=== PATIENT | female | born 1965 | race Two or more races ===

== ENCOUNTER → 2021-01-11 06:21 | Outpatient (CLI) | payer OTHER | END | disposition home or self-care (01) | LOC: LAB 06:21 | PROVIDERS: ATTEND Specialist | DX: E03.8 Other specified hypothyroidism (principal); D68.51 Activated protein C resistance; E72.11 Homocystinuria; D68.52 Prothrombin gene mutation; E72.12 Methylenetetrahydrofolate reductase deficiency; E11.65 Type 2 diabetes mellitus with hyperglycemia ==

== ENCOUNTER 2022-02-11 07:30 | Emergency (ER) | payer OTHER ==
[~2022-02-11] VITALS: Ht 139.7 cm; Wt 54.4 kg
[2022-02-11] MEDS ORDERED: ZITHROMAX500 MG PO (10:53)
[2022-02-11] MEDS ORDERED: FLONASE ALLERG9.9 ML NASAL (10:53)
== END 2022-02-11 11:15 | disposition home or self-care (01) ==
LOC: ER 07:30
DX: U07.1 COVID-19 (principal)

== ENCOUNTER 2023-09-03 05:31 | Emergency (ER) | payer OTHER ==
[~2023-09-03] VITALS: Ht 142.2 cm; Wt 56.7 kg
[~2023-09-03 05:31] MED LIST: FLONASE ALLERG9.9 ML NASAL; ZITHROMAX500 MG PO
[2023-09-03 09:08] LABS: HEMATOCRIT 36.9 % (36.0-45.00); HEMOGLOBIN 12.9 g/dL (12.0-15.00); MEAN CELL VOLUME 89.1 fL (80.00-100.00); MEAN CORPUSCULAR HEMOGLOBIN 31.2 pg (27.00-32.0); PLATELET COUNT 364 K/uL (150-450); RED BLOOD COUNT 4.15 M/uL (4.00-6.00)
[2023-09-03 09:32] LABS: INR 0.98; PROTHROMBIN TIME 10.3 SECONDS (9.0-11.5)
[2023-09-03 09:47] LABS: ALBUMIN 3.9 gm/dL (3.4-5.0); BILIRUBIN TOTAL 0.38 mg/dL (0.3-1.2); CALCIUM 9.8 mg/dL (8.5-10.1); CREATININE SERUM 0.62 mg/dL (0.55-1.02); GFR 98.52; GLOBULINA 4.9 G/DL (2.4-3.5); POTASSIUM 4.05 mEq/L (3.5-5.1); TOTAL PROTEIN 8.8 gm/dL (6.4-8.2)
[2023-09-03 09:50] LABS: C-REACTIVE PROTEIN 0.31 MG/DL (0.00-0.29)
[2023-09-03 10:13] LABS: D DIMER 1.26 MG/L; PARTIAL THROMBOPLASTIN TIME 28.7 SECONDS (22.0-34.0)
[2023-09-03] MEDS ORDERED: DAFLONEX-XL 11300 MG PO (14:37)
== END 2023-09-03 15:17 | disposition home or self-care (01) ==
LOC: ER
PROVIDERS: General Practice
DX: I73.9 Peripheral vascular disease, unspecified (principal); I87.2 Venous insufficiency (chronic) (peripheral)

== ENCOUNTER 2024-04-23 07:08 | Outpatient (CLI) | payer OTHER ==
[~2024-04-23 07:08] MED LIST changes: +ANTIVERT25 M1 PO; +DAFLONEX-XL 11300 MG PO; +SEPTRA DS TABLE1 TAB PO
== END 2024-04-23 07:10 | disposition home or self-care (01) ==
LOC: NUCLEAR 07:08
PROVIDERS: ATTEND Specialist
DX: D35.1 Benign neoplasm of parathyroid gland (principal)